=== PATIENT | female | born 1975 | race Caucasian/White ===

== ENCOUNTER 2021-09-02 13:45 | Inpatient (IN) ==
[2021-09-02] MEDS ORDERED: ONDANSETRON 4 MG/2 ML VIAL IV PRN (15:18)
[2021-09-02] MEDS ORDERED: ALBUTEROL 2.5 MG/3 ML NEB RESP TX PRN (15:18)
[2021-09-02] MEDS ORDERED: NICOTINE 21 MG/24 HR PATCH TRANSDERM PRN (15:18)
[2021-09-02] MEDS ORDERED: AZITHROMYCIN INJ 500 MG in SODIUM CHLORIDE 0.9% 250 ML IV ONE (15:21)
[2021-09-02] MEDS ORDERED: MELATONIN 3 MG TABLET PO PRN (15:21)
[2021-09-02] MEDS ORDERED: ZINC GLUCONATE 50 MG TABLET PO SCH (15:30)
[2021-09-02] MEDS ORDERED: CHOLECALCIFEROL 1,000 UNIT TABLET PO SCH (15:30)
[2021-09-02] MEDS: CETIRIZINE 10 MG TABLET PO SCH (15:45)
[2021-09-02 15:47] LABS: Bilirubin,Urine Negative (Negative); Blood, Urine Negative (Negative); Glucose,Urine (UA) Negative (Negative); Ketones,Urine Negative (Negative); Nitrite,Urine Negative (Negative); Protein,Urine Negative (Negative); Urine Appearance Clear (Clear); Urine Color Yellow (Yellow); Urine Specific Gravity >= 1.030 (1.001-1.035); Urine Urobilinogen 0.2 eU/dL (<2.0); Urine pH 5.5 (4.5-8.0)
[2021-09-02 15:52] LABS: Mucus,Urine Occasional /LPF (Occasional); RBC,Urine 2 /HPF (0-4); Squamous Epithelial Cell,Urine Occasional /HPF (0-10)
[2021-09-02 16:07] LABS: Barbiturates Screen,Urine Negative (Negative); Benzodiazepines Screen,Urine Positive (Negative); Cannabinoid Screen,Urine Negative (Negative); Opiate Screen,Urine Negative (Negative); Phencyclidine Screen,Urine Negative (Negative)
[2021-09-02] MEDS: ENOXAPARIN 40 MG/0.4 ML SYRINGE SUBCUT SCH (16:19)
[2021-09-02] MEDS: guaiFENesin/CODEINE 5 ML LIQUID PO PRN ×2 (16:19→21:45)
[2021-09-02 17:14] LABS: Basophils % 0.1 % (0.0-0.8); Eosinophils % 0.1 % (0.00-10.9); Hematocrit 34.1 VOL% (35.7-47.0); Hemoglobin 10.8 GM/DL (12.0-16.0); Immature Granulocytes % 1.2 %; Immature Granulocytes Absolute 0.21 #; Lymphocytes # 0.6 10*3/uL (1.4-4.0); Lymphocytes % 3.4 % (21.3-54.2); Mean Corpuscular HGB Conc 31.7 GM/DL (32-36); Mean Corpuscular Volume 93.4 FL (87-102); Mean Platelet Volume 10.1 FL (9.6-12.0); Monocytes # 0.3 10*3/uL (0.11-0.8); Monocytes % 1.6 % (1.7-12.7); Neutrophils % 93.6 % (38.7-73.9); Platelet Count 314 T/CUMM (130-400); Red Blood Count 3.65 MC/CUMM (3.8-5.5); Red Cell Distribution Width 13.3 % (9.3-17.3); White Blood Count 17.6 T/CUMM (4-12)
[2021-09-02 17:34] LABS: Ferritin 54.4 ng/mL (8-252)
[2021-09-02] MEDS: cefTRIAXone 1,000 MG in SODIUM CHLORIDE 0.9% 100 ML IV SCH (17:34)
[2021-09-02 17:36] LABS: Albumin 2.9 G/DL (3.4-5.0); Bilirubin,Total 0.4 MG/DL (0.20-1.00); Calcium 8.2 MG/DL (8.5-10.1); Osmolality,Calculated 278.7 MOS/KG (273-304); Potassium 3.8 MMOL/L (3.5-5.1)
[2021-09-02 17:43] LABS: Band Neutrophils 4 % (0-10); Lymphocytes 4 % (20-55); Platelet Estimate Normal; Total Cells Counted 100
[2021-09-02 17:44] LABS: Macrocytosis Slight; Polychromasia Few
[2021-09-02] MEDS: methylPREDNISolone SOD SUC 40 MG/1 ML VIAL IV SCH ×2 (17:55→23:46)
[2021-09-02] MEDS: CHOLECALCIFEROL 5,000 UNIT TABLET PO SCH (20:58)
[2021-09-02] MEDS: MELATONIN 3 MG TABLET PO SCH (20:58)
[2021-09-02] MEDS: FAMOTIDINE 20 MG TABLET PO SCH (20:58)
[2021-09-02] MEDS: GABAPENTIN 600 MG TABLET PO SCH (20:58)
[2021-09-02] MEDS: ASCORBIC ACID 500 MG TABLET PO SCH (20:58)
[2021-09-02] MEDS ORDERED: GABAPENTIN 300 MG CAPSULE PO SCH (21:00)
[2021-09-03 03:51] LABS: ABG Base Excess -0.6 MMOL/L (-2.5-2.5); ABG HCO3 23.9 MMOL/L (20-26); ABG Oxygen Saturation 95.2 % (95-100); ABG PCO2 44.3 MM HG (35-48); ABG PO2 80.1 MM HG (80-95); ABG TCO2 22.8 MMOL/L (23-27)
[2021-09-03] MEDS: guaiFENesin/CODEINE 5 ML LIQUID PO PRN ×3 (04:19→17:00)
[2021-09-03] MEDS: methylPREDNISolone SOD SUC 40 MG/1 ML VIAL IV SCH ×4 (05:42→23:32)
[2021-09-03 05:54] LABS: Basophils % 0.1 % (0.0-0.8); Hematocrit 31.8 VOL% (35.7-47.0); Hemoglobin 10.1 GM/DL (12.0-16.0); Immature Granulocytes % 0.9 %; Immature Granulocytes Absolute 0.14 #; Lymphocytes # 0.7 10*3/uL (1.4-4.0); Lymphocytes % 4.4 % (21.3-54.2); Mean Corpuscular HGB Conc 31.8 GM/DL (32-36); Mean Corpuscular Volume 94.4 FL (87-102); Mean Platelet Volume 10.1 FL (9.6-12.0); Monocytes # 0.1 10*3/uL (0.11-0.8); Monocytes % 0.7 % (1.7-12.7); Neutrophils % 93.9 % (38.7-73.9); Platelet Count 314 T/CUMM (130-400); Red Blood Count 3.37 MC/CUMM (3.8-5.5); Red Cell Distribution Width 13.2 % (9.3-17.3); White Blood Count 14.9 T/CUMM (4-12)
[2021-09-03 06:15] LABS: Calcium 8.9 MG/DL (8.5-10.1); Osmolality,Calculated 275.8 MOS/KG (273-304); Potassium 4.1 MMOL/L (3.5-5.1)
[2021-09-03 06:21] LABS: Lymphocytes 3 % (20-55); Total Cells Counted 100
[2021-09-03 06:22] LABS: Microcytosis 1+; Platelet Estimate Normal; Polychromasia Slight
[2021-09-03] MEDS ORDERED: PANTOPRAZOLE 40 MG TABLET PO SCH (09:00)
[2021-09-03] MEDS ORDERED: DEXAMETHASONE 4 MG/1 ML VIAL IV SCH (09:00)
[2021-09-03] MEDS: ASCORBIC ACID 500 MG TABLET PO SCH ×2 (09:52→21:58)
[2021-09-03] MEDS: CHOLECALCIFEROL 5,000 UNIT TABLET PO SCH ×2 (09:52→21:58)
[2021-09-03] MEDS: ZINC GLUCONATE 50 MG TABLET PO SCH (09:52)
[2021-09-03] MEDS: amLODIPine 10 MG TABLET PO SCH (09:53)
[2021-09-03] MEDS: CETIRIZINE 10 MG TABLET PO SCH (09:53)
[2021-09-03] MEDS: GABAPENTIN 600 MG TABLET PO SCH ×3 (09:53→21:58)
[2021-09-03] MEDS: FAMOTIDINE 20 MG TABLET PO SCH ×2 (09:53→21:58)
[2021-09-03] MEDS: oxyCODONE/ACETAMINOPHEN 5-325 MG TABLET PO PRN ×2 (11:25→21:58)
[2021-09-03] MEDS: ENOXAPARIN 40 MG/0.4 ML SYRINGE SUBCUT SCH (11:30)
[2021-09-03] MEDS: cefTRIAXone 1,000 MG in SODIUM CHLORIDE 0.9% 100 ML IV SCH (16:30)
[2021-09-03] MEDS: ENOXAPARIN 60 MG/0.6 ML SYRINGE SUBCUT SCH (18:18)
[2021-09-03] MEDS: MELATONIN 3 MG TABLET PO SCH (21:58)
[2021-09-04] MEDS: guaiFENesin/CODEINE 5 ML LIQUID PO PRN ×2 (00:20→06:00)
[2021-09-04 05:26] LABS: Arterial Base Excess iSTAT -1 MMOL/L (-2.5-2.5); Arterial Bicarbonate iSTAT 24.5 MMOL/L (20-26); Arterial O2 Saturation iSTAT 94 % (95-100); Arterial PCO2 iSTAT 45 MM HG (35-48); Arterial PO2 iSTAT 74 MM HG (80-95); Arterial Total CO2 iSTAT 26 MMO/L (23-27); Arterial pH iSTAT 7.343 (7.35-7.45)
[2021-09-04] MEDS: ENOXAPARIN 60 MG/0.6 ML SYRINGE SUBCUT SCH ×2 (05:27→16:40)
[2021-09-04] MEDS: methylPREDNISolone SOD SUC 40 MG/1 ML VIAL IV SCH ×4 (05:28→23:08)
[2021-09-04 05:34] LABS: Basophils % 0.2 % (0.0-0.8); Hematocrit 33.6 VOL% (35.7-47.0); Hemoglobin 10.1 GM/DL (12.0-16.0); Immature Granulocytes Absolute 0.23 #; Lymphocytes # 0.7 10*3/uL (1.4-4.0); Lymphocytes % 2.9 % (21.3-54.2); Mean Corpuscular HGB Conc 30.1 GM/DL (32-36); Mean Corpuscular Volume 100.9 FL (87-102); Mean Platelet Volume 11.1 FL (9.6-12.0); Monocytes # 0.5 10*3/uL (0.11-0.8); Monocytes % 2.1 % (1.7-12.7); Neutrophils % 93.8 % (38.7-73.9); Platelet Count 182 T/CUMM (130-400); Red Blood Count 3.33 MC/CUMM (3.8-5.5); Red Cell Distribution Width 13.6 % (9.3-17.3); White Blood Count 22.6 T/CUMM (4-12)
[2021-09-04 06:04] LABS: Calcium 8.4 MG/DL (8.5-10.1); Osmolality,Calculated 278.7 MOS/KG (273-304); Phosphorous 2.2 MG/DL (2.5-4.9); Potassium 4.5 MMOL/L (3.5-5.1)
[2021-09-04 06:26] LABS: Band Neutrophils 1 % (0-10); Lymphocytes 1 % (20-55); Total Cells Counted 100
[2021-09-04 06:27] LABS: Microcytosis 1+; Ovalocytes Slight
[2021-09-04] MEDS: guaiFENesin/DM ER 600-30 MG TABLET PO PRN (08:49)
[2021-09-04] MEDS: FAMOTIDINE 20 MG TABLET PO SCH ×2 (08:49→20:13)
[2021-09-04] MEDS: ZINC GLUCONATE 50 MG TABLET PO SCH (08:49)
[2021-09-04] MEDS: ASCORBIC ACID 500 MG TABLET PO SCH ×2 (08:49→20:13)
[2021-09-04] MEDS: GABAPENTIN 600 MG TABLET PO SCH ×3 (08:50→20:13)
[2021-09-04] MEDS: CHOLECALCIFEROL 5,000 UNIT TABLET PO SCH ×2 (08:50→20:13)
[2021-09-04] MEDS: amLODIPine 10 MG TABLET PO SCH (08:50)
[2021-09-04] MEDS: CETIRIZINE 10 MG TABLET PO SCH (08:50)
[2021-09-04] MEDS: oxyCODONE/ACETAMINOPHEN 5-325 MG TABLET PO PRN ×3 (09:30→21:38)
[2021-09-04] MEDS: LORazepam 2 MG/1 ML VIAL IV PRN ×3 (10:45→23:07)
[2021-09-04] MEDS: ALBUTEROL INHALER 18 GM INH SCH ×3 (11:54→19:50)
[2021-09-04] MEDS: HYDROcodone/CHLORPHENIRAMINE ER 5 ML UDCUP PO SCH ×2 (11:54→20:13)
[2021-09-04] MEDS: cefTRIAXone 1,000 MG in SODIUM CHLORIDE 0.9% 100 ML IV SCH (16:40)
[2021-09-04] MEDS: MELATONIN 3 MG TABLET PO SCH (20:13)
[2021-09-05] MEDS: ALBUTEROL INHALER 18 GM INH SCH ×4 (01:00→20:20)
[2021-09-05] MEDS: LORazepam 2 MG/1 ML VIAL IV PRN ×5 (03:21→21:52)
[2021-09-05] MEDS: ENOXAPARIN 60 MG/0.6 ML SYRINGE SUBCUT SCH ×2 (05:04→15:32)
[2021-09-05] MEDS: methylPREDNISolone SOD SUC 40 MG/1 ML VIAL IV SCH ×4 (05:04→22:03)
[2021-09-05] MEDS: oxyCODONE/ACETAMINOPHEN 5-325 MG TABLET PO PRN ×4 (05:05→21:51)
[2021-09-05 05:29] LABS: ABG Base Excess 0.4 MMOL/L (-2.5-2.5); ABG HCO3 24.7 MMOL/L (20-26); ABG Oxygen Saturation 94.3 % (95-100); ABG PCO2 48.2 MM HG (35-48); ABG PH 7.348 (7.35-7.45); ABG PO2 72.7 MM HG (80-95); ABG TCO2 24.2 MMOL/L (23-27)
[2021-09-05 05:41] LABS: Basophils % 0.1 % (0.0-0.8); Hematocrit 32.9 VOL% (35.7-47.0); Lymphocytes # 0.8 10*3/uL (1.4-4.0); Lymphocytes % 3.8 % (21.3-54.2); Mean Corpuscular HGB Conc 30.4 GM/DL (32-36); Mean Corpuscular Volume 99.1 FL (87-102); Mean Platelet Volume 10.3 FL (9.6-12.0); Monocytes # 0.4 10*3/uL (0.11-0.8); Monocytes % 2.2 % (1.7-12.7); Neutrophils % 91.9 % (38.7-73.9); Platelet Count 335 T/CUMM (130-400); Red Blood Count 3.32 MC/CUMM (3.8-5.5); Red Cell Distribution Width 13.8 % (9.3-17.3); White Blood Count 20.3 T/CUMM (4-12)
[2021-09-05 06:04] LABS: Calcium 7.5 MG/DL (8.5-10.1); Osmolality,Calculated 291.7 MOS/KG (273-304)
[2021-09-05 06:06] LABS: Lymphocytes 4 % (20-55); Total Cells Counted 100
[2021-09-05 06:07] LABS: Platelet Estimate Adequate
[2021-09-05] MEDS: FAMOTIDINE 20 MG TABLET PO SCH ×2 (08:09→21:52)
[2021-09-05] MEDS: guaiFENesin/DM ER 600-30 MG TABLET PO PRN (08:09)
[2021-09-05] MEDS: GABAPENTIN 600 MG TABLET PO SCH ×3 (08:09→21:52)
[2021-09-05] MEDS: ASCORBIC ACID 500 MG TABLET PO SCH ×2 (08:09→21:51)
[2021-09-05] MEDS: ZINC GLUCONATE 50 MG TABLET PO SCH (08:09)
[2021-09-05] MEDS: CHOLECALCIFEROL 5,000 UNIT TABLET PO SCH ×2 (08:09→21:52)
[2021-09-05] MEDS: CETIRIZINE 10 MG TABLET PO SCH (08:09)
[2021-09-05] MEDS: amLODIPine 10 MG TABLET PO SCH (08:10)
[2021-09-05] MEDS: HYDROcodone/CHLORPHENIRAMINE ER 5 ML UDCUP PO SCH ×2 (08:11→21:55)
[2021-09-05] MEDS: FUROSEMIDE 40 MG/4 ML VIAL IV SCH (15:32)
[2021-09-05] MEDS: cefTRIAXone 1,000 MG in SODIUM CHLORIDE 0.9% 100 ML IV SCH (16:48)
[2021-09-05] MEDS: MELATONIN 3 MG TABLET PO SCH (21:58)
[2021-09-06] MEDS: ALBUTEROL INHALER 18 GM INH SCH ×4 (03:40→21:15)
[2021-09-06] MEDS: oxyCODONE/ACETAMINOPHEN 5-325 MG TABLET PO PRN ×2 (05:08→13:33)
[2021-09-06] MEDS: ENOXAPARIN 60 MG/0.6 ML SYRINGE SUBCUT SCH ×2 (05:08→15:31)
[2021-09-06] MEDS: methylPREDNISolone SOD SUC 40 MG/1 ML VIAL IV SCH ×4 (05:08→22:29)
[2021-09-06] MEDS: guaiFENesin/DM ER 600-30 MG TABLET PO PRN ×3 (05:28→21:14)
[2021-09-06] MEDS: ZINC GLUCONATE 50 MG TABLET PO SCH (08:15)
[2021-09-06] MEDS: FAMOTIDINE 20 MG TABLET PO SCH ×2 (08:15→21:14)
[2021-09-06] MEDS: CHOLECALCIFEROL 5,000 UNIT TABLET PO SCH ×2 (08:15→21:14)
[2021-09-06] MEDS: ASCORBIC ACID 500 MG TABLET PO SCH ×2 (08:16→21:14)
[2021-09-06] MEDS: FUROSEMIDE 40 MG/4 ML VIAL IV SCH (08:16)
[2021-09-06] MEDS: HYDROcodone/CHLORPHENIRAMINE ER 5 ML UDCUP PO SCH ×2 (08:16→21:15)
[2021-09-06] MEDS: GABAPENTIN 600 MG TABLET PO SCH ×3 (08:16→21:14)
[2021-09-06] MEDS: amLODIPine 10 MG TABLET PO SCH (08:16)
[2021-09-06] MEDS: CETIRIZINE 10 MG TABLET PO SCH (08:16)
[2021-09-06] MEDS: LORazepam 2 MG/1 ML VIAL IV PRN ×3 (08:17→21:15)
[2021-09-06] MEDS: cefTRIAXone 1,000 MG in SODIUM CHLORIDE 0.9% 100 ML IV SCH (16:30)
[2021-09-06] MEDS: MELATONIN 3 MG TABLET PO SCH (21:14)
[2021-09-06] MEDS: ACETAMINOPHEN 325 MG TABLET PO PRN (21:17)
[2021-09-06 23:08] LABS: ABG Oxygen Saturation 94.3 % (95-100); ABG PCO2 47.2 MM HG (35-48); ABG PH 7.403 (7.35-7.45); ABG PO2 76.8 MM HG (80-95); ABG TCO2 26.9 MMOL/L (23-27)
[2021-09-07] MEDS: ALBUTEROL INHALER 18 GM INH SCH ×4 (02:53→20:59)
[2021-09-07] MEDS: LORazepam 2 MG/1 ML VIAL IV PRN ×3 (02:53→16:04)
[2021-09-07] MEDS: methylPREDNISolone SOD SUC 40 MG/1 ML VIAL IV SCH ×2 (04:23→11:19)
[2021-09-07] MEDS: ENOXAPARIN 60 MG/0.6 ML SYRINGE SUBCUT SCH ×2 (04:23→16:21)
[2021-09-07] MEDS: oxyCODONE/ACETAMINOPHEN 5-325 MG TABLET PO PRN ×3 (04:24→16:04)
[2021-09-07] MEDS: ZINC GLUCONATE 50 MG TABLET PO SCH (08:11)
[2021-09-07] MEDS: HYDROcodone/CHLORPHENIRAMINE ER 5 ML UDCUP PO SCH ×2 (08:12→20:56)
[2021-09-07] MEDS: CHOLECALCIFEROL 5,000 UNIT TABLET PO SCH ×2 (08:12→20:58)
[2021-09-07] MEDS: FUROSEMIDE 40 MG/4 ML VIAL IV SCH (08:12)
[2021-09-07] MEDS: GABAPENTIN 600 MG TABLET PO SCH ×3 (08:13→20:58)
[2021-09-07] MEDS: guaiFENesin/DM ER 600-30 MG TABLET PO PRN (08:13)
[2021-09-07] MEDS: ASCORBIC ACID 500 MG TABLET PO SCH ×2 (08:13→20:57)
[2021-09-07] MEDS: FAMOTIDINE 20 MG TABLET PO SCH ×2 (08:13→20:58)
[2021-09-07] MEDS: amLODIPine 10 MG TABLET PO SCH (08:13)
[2021-09-07] MEDS: CETIRIZINE 10 MG TABLET PO SCH (08:13)
[2021-09-07] MEDS: ACETAMINOPHEN 325 MG TABLET PO PRN (08:40)
[2021-09-07 09:21] LABS: Basophils % 0.1 % (0.0-0.8); Hematocrit 34.8 VOL% (35.7-47.0); Hemoglobin 10.7 GM/DL (12.0-16.0); Immature Granulocytes % 2.2 %; Immature Granulocytes Absolute 0.32 #; Lymphocytes # 0.6 10*3/uL (1.4-4.0); Lymphocytes % 4.5 % (21.3-54.2); Mean Corpuscular HGB Conc 30.7 GM/DL (32-36); Mean Corpuscular Volume 96.7 FL (87-102); Mean Platelet Volume 10.1 FL (9.6-12.0); Monocytes # 0.2 10*3/uL (0.11-0.8); Monocytes % 1.3 % (1.7-12.7); NRBC # 0.03 10*3/uL; Neutrophils % 91.9 % (38.7-73.9); Platelet Count 384 T/CUMM (130-400); Red Cell Distribution Width 13.2 % (9.3-17.3); White Blood Count 14.3 T/CUMM (4-12)
[2021-09-07] MEDS: DIAZEPAM 5 MG TABLET PO SCH ×3 (09:30→20:57)
[2021-09-07] MEDS: BENZONATATE 100 MG CAPSULE PO SCH ×3 (09:30→20:57)
[2021-09-07 09:39] LABS: Alanine Aminotransferase 94 U/L (13-56); Albumin 2.4 G/DL (3.4-5.0); Alkaline Phosphatase 53 U/L (45-117); Aspartate Amino Transferase 40 U/L (0-37); Bilirubin,Total < 0.39 MG/DL (0.20-1.00); Blood Urea Nitrogen 21 MG/DL (7-18); Calcium 8.3 MG/DL (8.5-10.1); Carbon Dioxide 33 MMOL/L (21-32); Chloride 104 MMOL/L (98-107); Estimated Glom Filtration Rate 117 ML/MIN; Glucose 201 MG/DL (74-106); Osmolality,Calculated 289.3 MOS/KG (273-304); Potassium 3.8 MMOL/L (3.5-5.1); Sodium 141 MMOL/L (136-145); Total Protein 6.8 G/DL (6.4-8.2)
[2021-09-07 09:42] LABS: Lymphocytes 4 % (20-55); Metamyelocytes 1 %; Myelocytes 1 %; Total Cells Counted 100
[2021-09-07 09:43] LABS: Polychromasia Few
[2021-09-07 09:44] LABS: Macrocytosis Slight; Ovalocytes Slight; Platelet Estimate Increased
[2021-09-07] MEDS: methylPREDNISolone SOD SUC 125 MG/2 ML VIAL IV SCH ×2 (14:00→20:58)
[2021-09-07] MEDS: cefTRIAXone 1,000 MG in SODIUM CHLORIDE 0.9% 100 ML IV SCH (16:21)
[2021-09-07] MEDS: MELATONIN 3 MG TABLET PO SCH (20:57)
[2021-09-08] MEDS: LORazepam 2 MG/1 ML VIAL IV PRN ×2 (01:43→06:09)
[2021-09-08] MEDS: oxyCODONE/ACETAMINOPHEN 5-325 MG TABLET PO PRN (01:43)
[2021-09-08 03:09] LABS: Basophils % 0.1 % (0.0-0.8); Hematocrit 32.1 VOL% (35.7-47.0); Hemoglobin 10.3 GM/DL (12.0-16.0); Immature Granulocytes % 2.7 %; Immature Granulocytes Absolute 0.39 #; Lymphocytes # 0.6 10*3/uL (1.4-4.0); Lymphocytes % 4.4 % (21.3-54.2); Mean Corpuscular HGB Conc 32.1 GM/DL (32-36); Mean Corpuscular Volume 93.9 FL (87-102); Monocytes # 0.3 10*3/uL (0.11-0.8); Monocytes % 2.2 % (1.7-12.7); NRBC # 0.03 10*3/uL; Neutrophils % 90.6 % (38.7-73.9); Platelet Count 365 T/CUMM (130-400); Red Blood Count 3.42 MC/CUMM (3.8-5.5); Red Cell Distribution Width 13.2 % (9.3-17.3); White Blood Count 14.7 T/CUMM (4-12)
[2021-09-08 03:29] LABS: Hypochromia Slight; Lymphocytes 4 % (20-55); Microcytosis Slight; Platelet Estimate Adequate; Total Cells Counted 100
[2021-09-08 04:14] LABS: Arterial Base Excess iSTAT 3 MMOL/L (-2.5-2.5); Arterial O2 Saturation iSTAT 96 % (95-100); Arterial PCO2 iSTAT 51 MM HG (35-48); Arterial PO2 iSTAT 83 MM HG (80-95); Arterial Total CO2 iSTAT 31 MMO/L (23-27); Arterial pH iSTAT 7.366 (7.35-7.45)
[2021-09-08 04:14] LABS: Arterial Base Excess iSTAT 2 MMOL/L (-2.5-2.5); Arterial Bicarbonate iSTAT 28.5 MMOL/L (20-26); Arterial PCO2 iSTAT 49 MM HG (35-48); Arterial Total CO2 iSTAT 30 MMO/L (23-27); Arterial pH iSTAT 7.374 (7.35-7.45)
[2021-09-08 04:26] LABS: Alanine Aminotransferase 74 U/L (13-56); Albumin 2.1 G/DL (3.4-5.0); Alkaline Phosphatase 52 U/L (45-117); Aspartate Amino Transferase 22 U/L (0-37); Bilirubin,Total < 0.39 MG/DL (0.20-1.00); Blood Urea Nitrogen 21 MG/DL (7-18); Calcium 7.9 MG/DL (8.5-10.1); Carbon Dioxide 28 MMOL/L (21-32); Chloride 107 MMOL/L (98-107); Estimated Glom Filtration Rate 138 ML/MIN; Glucose 230 MG/DL (74-106); Osmolality,Calculated 290.3 MOS/KG (273-304); Potassium 3.7 MMOL/L (3.5-5.1); Sodium 141 MMOL/L (136-145); Total Protein 5.9 G/DL (6.4-8.2)
[2021-09-08] MEDS: ALBUTEROL INHALER 18 GM INH SCH ×3 (04:55→13:48)
[2021-09-08] MEDS: ENOXAPARIN 60 MG/0.6 ML SYRINGE SUBCUT SCH ×2 (05:26→16:54)
[2021-09-08] MEDS: methylPREDNISolone SOD SUC 125 MG/2 ML VIAL IV SCH ×3 (05:26→20:30)
[2021-09-08] MEDS ORDERED: ETOMIDATE 20 MG/10 ML VIAL IV ONE ×4 (08:15→08:49)
[2021-09-08] MEDS ORDERED: SUCCINYLCHOLINE 200 MG/10 ML VIAL ONE (08:16)
[2021-09-08] MEDS ORDERED: SUCCINYLCHOLINE 200 MG/10 ML VIAL IV ONE (08:43)
[2021-09-08] MEDS ORDERED: MIDAZOLAM 10 MG/2 ML VIAL ONE (08:51)
[2021-09-08] MEDS ORDERED: MIDAZOLAM 2 MG/2 ML VIAL IV ONE ×2 (08:53→08:58)
[2021-09-08] MEDS: MIDAZOLAM 100 MG in SODIUM CHLORIDE 0.9% 80 ML IV PRN (09:25)
[2021-09-08 10:05] LABS: Arterial Base Excess iSTAT 6 MMOL/L (-2.5-2.5); Arterial Bicarbonate iSTAT 33.1 MMOL/L (20-26); Arterial O2 Saturation iSTAT 100 % (95-100); Arterial PCO2 iSTAT 58 MM HG (35-48); Arterial PO2 iSTAT 306 MM HG (80-95); Arterial Total CO2 iSTAT 35 MMO/L (23-27); Arterial pH iSTAT 7.362 (7.35-7.45)
[2021-09-08] MEDS: CETIRIZINE 10 MG TABLET PO SCH (10:45)
[2021-09-08] MEDS: ZINC GLUCONATE 50 MG TABLET PO SCH (10:45)
[2021-09-08] MEDS: FAMOTIDINE 20 MG TABLET PO SCH ×2 (10:46→20:25)
[2021-09-08] MEDS: CHOLECALCIFEROL 5,000 UNIT TABLET PO SCH ×2 (10:46→20:23)
[2021-09-08] MEDS: ASCORBIC ACID 500 MG TABLET PO SCH ×2 (10:46→20:23)
[2021-09-08] MEDS: GABAPENTIN 600 MG TABLET PO SCH ×3 (10:46→20:25)
[2021-09-08] MEDS: DIAZEPAM 5 MG TABLET PO SCH ×3 (10:47→20:24)
[2021-09-08] MEDS: AZITHROMYCIN INJ 500 MG in SODIUM CHLORIDE 0.9% 250 ML IV SCH (10:49)
[2021-09-08] MEDS: BENZONATATE 100 MG CAPSULE PO SCH ×3 (13:46→20:25)
[2021-09-08] MEDS: HYDROcodone/CHLORPHENIRAMINE ER 5 ML UDCUP PO SCH ×2 (13:46→20:25)
[2021-09-08] MEDS: amLODIPine 10 MG TABLET PO SCH (13:53)
[2021-09-08] MEDS: cefTRIAXone 1,000 MG in SODIUM CHLORIDE 0.9% 100 ML IV SCH (16:54)
[2021-09-08] MEDS: MELATONIN 3 MG TABLET PO SCH (20:23)
[2021-09-09 03:25] LABS: ABG Base Excess 4.3 MMOL/L (-2.5-2.5); ABG HCO3 28.3 MMOL/L (20-26); ABG Oxygen Saturation 99.4 % (95-100); ABG PCO2 40.1 MM HG (35-48); ABG PH 7.458 (7.35-7.45); ABG TCO2 25.9 MMOL/L (23-27)
[2021-09-09 04:20] LABS: Basophils % 0.1 % (0.0-0.8); Hemoglobin 9.1 GM/DL (12.0-16.0); Immature Granulocytes % 1.9 %; Immature Granulocytes Absolute 0.22 #; Lymphocytes # 0.8 10*3/uL (1.4-4.0); Lymphocytes % 6.8 % (21.3-54.2); Mean Corpuscular HGB Conc 30.3 GM/DL (32-36); Mean Corpuscular Volume 96.8 FL (87-102); Mean Platelet Volume 10.3 FL (9.6-12.0); Monocytes # 0.4 10*3/uL (0.11-0.8); Monocytes % 3.4 % (1.7-12.7); NRBC # 0.02 10*3/uL; Neutrophils % 87.8 % (38.7-73.9); Platelet Count 337 T/CUMM (130-400); Red Cell Distribution Width 13.2 % (9.3-17.3); White Blood Count 11.5 T/CUMM (4-12)
[2021-09-09 04:39] LABS: Alanine Aminotransferase 111 U/L (13-56); Alkaline Phosphatase 40 U/L (45-117); Aspartate Amino Transferase 31 U/L (0-37); Bilirubin,Total < 0.39 MG/DL (0.20-1.00); Blood Urea Nitrogen 22 MG/DL (7-18); Carbon Dioxide 29 MMOL/L (21-32); Chloride 109 MMOL/L (98-107); Estimated Glom Filtration Rate 147 ML/MIN; Glucose 154 MG/DL (74-106); Osmolality,Calculated 288.1 MOS/KG (273-304); Potassium 4.4 MMOL/L (3.5-5.1); Sodium 142 MMOL/L (136-145); Total Protein 5.5 G/DL (6.4-8.2)
[2021-09-09] MEDS: ENOXAPARIN 60 MG/0.6 ML SYRINGE SUBCUT SCH ×2 (04:43→17:11)
[2021-09-09] MEDS: methylPREDNISolone SOD SUC 125 MG/2 ML VIAL IV SCH ×3 (04:44→20:30)
[2021-09-09] MEDS: ALBUTEROL INHALER 18 GM INH SCH ×4 (04:44→18:00)
[2021-09-09] MEDS: amLODIPine 10 MG TABLET PO SCH (08:53)
[2021-09-09] MEDS: BENZONATATE 100 MG CAPSULE PO SCH ×2 (08:54→15:05)
[2021-09-09] MEDS: MIDAZOLAM 100 MG in SODIUM CHLORIDE 0.9% 80 ML IV PRN ×2 (09:07→22:40)
[2021-09-09] MEDS: AZITHROMYCIN INJ 500 MG in SODIUM CHLORIDE 0.9% 250 ML IV SCH (09:07)
[2021-09-09] MEDS: FUROSEMIDE 40 MG/4 ML VIAL IV SCH (09:13)
[2021-09-09] MEDS: HYDROcodone/CHLORPHENIRAMINE ER 5 ML UDCUP PO SCH ×2 (09:15→20:02)
[2021-09-09] MEDS: CETIRIZINE 10 MG TABLET PO SCH (09:16)
[2021-09-09] MEDS: GABAPENTIN 600 MG TABLET PO SCH ×3 (09:16→20:02)
[2021-09-09] MEDS: DIAZEPAM 5 MG TABLET PO SCH ×3 (09:16→20:02)
[2021-09-09] MEDS: CHOLECALCIFEROL 5,000 UNIT TABLET PO SCH ×2 (09:17→20:02)
[2021-09-09] MEDS: FAMOTIDINE 20 MG TABLET PO SCH ×2 (09:17→20:01)
[2021-09-09] MEDS: ZINC GLUCONATE 50 MG TABLET PO SCH (09:17)
[2021-09-09] MEDS: ASCORBIC ACID 500 MG TABLET PO SCH ×2 (09:17→20:01)
[2021-09-09] MEDS: cefTRIAXone 1,000 MG in SODIUM CHLORIDE 0.9% 100 ML IV SCH (17:11)
[2021-09-09] MEDS: MELATONIN 3 MG TABLET PO SCH (20:01)
[2021-09-10] MEDS: ALBUTEROL INHALER 18 GM INH SCH ×4 (00:14→19:39)
[2021-09-10] MEDS: ENOXAPARIN 60 MG/0.6 ML SYRINGE SUBCUT SCH ×2 (03:38→17:24)
[2021-09-10 03:56] LABS: Arterial Base Excess iSTAT 5 MMOL/L (-2.5-2.5); Arterial Bicarbonate iSTAT 29.3 MMOL/L (20-26); Arterial O2 Saturation iSTAT 99 % (95-100); Arterial PCO2 iSTAT 41 MM HG (35-48); Arterial PO2 iSTAT 124 MM HG (80-95); Arterial Total CO2 iSTAT 31 MMO/L (23-27); Arterial pH iSTAT 7.462 (7.35-7.45)
[2021-09-10 04:33] LABS: Basophils % 0.1 % (0.0-0.8); Hematocrit 31.3 VOL% (35.7-47.0); Hemoglobin 9.9 GM/DL (12.0-16.0); Immature Granulocytes % 2.2 %; Immature Granulocytes Absolute 0.21 #; Lymphocytes # 0.9 10*3/uL (1.4-4.0); Lymphocytes % 8.9 % (21.3-54.2); Mean Corpuscular HGB Conc 31.6 GM/DL (32-36); Mean Corpuscular Volume 95.1 FL (87-102); Mean Platelet Volume 10.2 FL (9.6-12.0); Monocytes # 0.4 10*3/uL (0.11-0.8); Monocytes % 4.6 % (1.7-12.7); Neutrophils % 84.2 % (38.7-73.9); Platelet Count 360 T/CUMM (130-400); Red Blood Count 3.29 MC/CUMM (3.8-5.5); Red Cell Distribution Width 13.2 % (9.3-17.3); White Blood Count 9.6 T/CUMM (4-12)
[2021-09-10 04:49] LABS: Alanine Aminotransferase 82 U/L (13-56); Albumin 2.1 G/DL (3.4-5.0); Alkaline Phosphatase 37 U/L (45-117); Aspartate Amino Transferase 15 U/L (0-37); Bilirubin,Total < 0.39 MG/DL (0.20-1.00); Blood Urea Nitrogen 27 MG/DL (7-18); Carbon Dioxide 29 MMOL/L (21-32); Chloride 108 MMOL/L (98-107); Estimated Glom Filtration Rate 142 ML/MIN; Glucose 164 MG/DL (74-106); Osmolality,Calculated 291.1 MOS/KG (273-304); Potassium 4.4 MMOL/L (3.5-5.1); Sodium 142 MMOL/L (136-145); Total Protein 5.9 G/DL (6.4-8.2)
[2021-09-10] MEDS: methylPREDNISolone SOD SUC 125 MG/2 ML VIAL IV SCH ×3 (04:52→21:27)
[2021-09-10] MEDS: AZITHROMYCIN INJ 500 MG in SODIUM CHLORIDE 0.9% 250 ML IV SCH (06:33)
[2021-09-10] MEDS: FUROSEMIDE 40 MG/4 ML VIAL IV SCH (08:30)
[2021-09-10] MEDS: ZINC GLUCONATE 50 MG TABLET PO SCH (08:31)
[2021-09-10] MEDS: DIAZEPAM 5 MG TABLET PO SCH ×2 (08:31→20:24)
[2021-09-10] MEDS: CHOLECALCIFEROL 5,000 UNIT TABLET PO SCH ×2 (08:31→20:24)
[2021-09-10] MEDS: CETIRIZINE 10 MG TABLET PO SCH (08:31)
[2021-09-10] MEDS: ASCORBIC ACID 500 MG TABLET PO SCH ×2 (08:31→20:24)
[2021-09-10] MEDS: GABAPENTIN 600 MG TABLET PO SCH ×3 (08:31→20:25)
[2021-09-10] MEDS: FAMOTIDINE 20 MG TABLET PO SCH ×2 (08:31→20:24)
[2021-09-10] MEDS: HYDROcodone/CHLORPHENIRAMINE ER 5 ML UDCUP PO SCH ×2 (08:32→20:25)
[2021-09-10] MEDS ORDERED: DEXTROSE 10% 25 GM/250 ML BAG IV PRN (11:01)
[2021-09-10] MEDS ORDERED: GLUCAGON 1 MG VIAL IM PRN (11:01)
[2021-09-10] MEDS: amLODIPine 10 MG TABLET PO SCH (11:32)
[2021-09-10] MEDS: INSULIN REGULAR 100 UNIT/ML SUBCUT SCH ×2 (14:32→18:28)
[2021-09-10] MEDS: cefTRIAXone 1,000 MG in SODIUM CHLORIDE 0.9% 100 ML IV SCH (17:24)
[2021-09-10] MEDS: MELATONIN 3 MG TABLET PO SCH (20:24)
[2021-09-11] MEDS: INSULIN REGULAR 100 UNIT/ML SUBCUT SCH ×4 (01:55→18:09)
[2021-09-11] MEDS: ALBUTEROL INHALER 18 GM INH SCH ×4 (01:56→18:59)
[2021-09-11] MEDS: oxyCODONE/ACETAMINOPHEN 5-325 MG TABLET PO PRN ×2 (03:01→22:14)
[2021-09-11 03:43] LABS: Basophils % 0.1 % (0.0-0.8); Hematocrit 31.7 VOL% (35.7-47.0); Immature Granulocytes % 1.9 %; Immature Granulocytes Absolute 0.21 #; Lymphocytes # 1.7 10*3/uL (1.4-4.0); Mean Corpuscular HGB Conc 31.5 GM/DL (32-36); Mean Corpuscular Volume 93.5 FL (87-102); Mean Platelet Volume 10.1 FL (9.6-12.0); Monocytes # 0.8 10*3/uL (0.11-0.8); Monocytes % 6.8 % (1.7-12.7); Neutrophils % 76.2 % (38.7-73.9); Platelet Count 371 T/CUMM (130-400); Red Blood Count 3.39 MC/CUMM (3.8-5.5); Red Cell Distribution Width 13.3 % (9.3-17.3); White Blood Count 11.2 T/CUMM (4-12)
[2021-09-11 03:56] LABS: Arterial Base Excess iSTAT 6 MMOL/L (-2.5-2.5); Arterial Bicarbonate iSTAT 29.8 MMOL/L (20-26); Arterial O2 Saturation iSTAT 99 % (95-100); Arterial PCO2 iSTAT 37 MM HG (35-48); Arterial PO2 iSTAT 124 MM HG (80-95); Arterial Total CO2 iSTAT 31 MMO/L (23-27); Arterial pH iSTAT 7.513 (7.35-7.45)
[2021-09-11 04:01] LABS: Alanine Aminotransferase 60 U/L (13-56); Albumin 2.2 G/DL (3.4-5.0); Alkaline Phosphatase 35 U/L (45-117); Aspartate Amino Transferase 11 U/L (0-37); Bilirubin,Total < 0.39 MG/DL (0.20-1.00); Blood Urea Nitrogen 31 MG/DL (7-18); Calcium 8.2 MG/DL (8.5-10.1); Carbon Dioxide 30 MMOL/L (21-32); Chloride 107 MMOL/L (98-107); Estimated Glom Filtration Rate 142 ML/MIN; Glucose 113 MG/DL (74-106); Osmolality,Calculated 286.4 MOS/KG (273-304); Potassium 4.6 MMOL/L (3.5-5.1); Sodium 140 MMOL/L (136-145); Total Protein 5.9 G/DL (6.4-8.2)
[2021-09-11] MEDS: ENOXAPARIN 60 MG/0.6 ML SYRINGE SUBCUT SCH ×2 (04:52→15:41)
[2021-09-11] MEDS: methylPREDNISolone SOD SUC 125 MG/2 ML VIAL IV SCH ×3 (05:54→21:30)
[2021-09-11] MEDS: AZITHROMYCIN INJ 500 MG in SODIUM CHLORIDE 0.9% 250 ML IV SCH (06:55)
[2021-09-11] MEDS: FUROSEMIDE 40 MG/4 ML VIAL IV SCH (08:27)
[2021-09-11] MEDS: CHOLECALCIFEROL 5,000 UNIT TABLET PO SCH ×2 (08:33→20:12)
[2021-09-11] MEDS: ZINC GLUCONATE 50 MG TABLET PO SCH (08:33)
[2021-09-11] MEDS: GABAPENTIN 600 MG TABLET PO SCH ×3 (08:33→20:13)
[2021-09-11] MEDS: ASCORBIC ACID 500 MG TABLET PO SCH ×2 (08:33→20:12)
[2021-09-11] MEDS: amLODIPine 10 MG TABLET PO SCH (08:33)
[2021-09-11] MEDS: FAMOTIDINE 20 MG TABLET PO SCH ×2 (08:33→20:13)
[2021-09-11] MEDS: CETIRIZINE 10 MG TABLET PO SCH (08:34)
[2021-09-11] MEDS: HYDROcodone/CHLORPHENIRAMINE ER 5 ML UDCUP PO SCH ×2 (08:34→20:13)
[2021-09-11] MEDS: DIAZEPAM 5 MG TABLET PO SCH ×2 (08:34→20:13)
[2021-09-11] MEDS: cefTRIAXone 1,000 MG in SODIUM CHLORIDE 0.9% 100 ML IV SCH (17:00)
[2021-09-11] MEDS: MELATONIN 3 MG TABLET PO SCH (20:12)
[2021-09-12] MEDS: INSULIN REGULAR 100 UNIT/ML SUBCUT SCH ×4 (00:16→17:27)
[2021-09-12] MEDS: ALBUTEROL INHALER 18 GM INH SCH ×4 (01:36→21:24)
[2021-09-12 03:42] LABS: Arterial Base Excess iSTAT 5 MMOL/L (-2.5-2.5); Arterial Bicarbonate iSTAT 28.9 MMOL/L (20-26); Arterial O2 Saturation iSTAT 99 % (95-100); Arterial PCO2 iSTAT 37 MM HG (35-48); Arterial PO2 iSTAT 146 MM HG (80-95); Arterial Total CO2 iSTAT 30 MMO/L (23-27); Arterial pH iSTAT 7.499 (7.35-7.45)
[2021-09-12 04:11] LABS: Basophils % 0.1 % (0.0-0.8); Hematocrit 33.8 VOL% (35.7-47.0); Hemoglobin 10.9 GM/DL (12.0-16.0); Immature Granulocytes Absolute 0.24 #; Lymphocytes # 0.9 10*3/uL (1.4-4.0); Lymphocytes % 7.6 % (21.3-54.2); Mean Corpuscular HGB Conc 32.2 GM/DL (32-36); Mean Corpuscular Volume 92.3 FL (87-102); Monocytes # 0.5 10*3/uL (0.11-0.8); Monocytes % 4.4 % (1.7-12.7); Neutrophils % 85.9 % (38.7-73.9); Platelet Count 406 T/CUMM (130-400); Red Blood Count 3.66 MC/CUMM (3.8-5.5); Red Cell Distribution Width 13.2 % (9.3-17.3); White Blood Count 11.8 T/CUMM (4-12)
[2021-09-12 04:31] LABS: Alanine Aminotransferase 57 U/L (13-56); Albumin 2.4 G/DL (3.4-5.0); Alkaline Phosphatase 33 U/L (45-117); Aspartate Amino Transferase 9 U/L (0-37); Bilirubin,Total < 0.39 MG/DL (0.20-1.00); Blood Urea Nitrogen 34 MG/DL (7-18); Calcium 8.6 MG/DL (8.5-10.1); Carbon Dioxide 29 MMOL/L (21-32); Chloride 104 MMOL/L (98-107); Estimated Glom Filtration Rate 141 ML/MIN; Glucose 156 MG/DL (74-106); Osmolality,Calculated 285.7 MOS/KG (273-304); Potassium 4.4 MMOL/L (3.5-5.1); Sodium 138 MMOL/L (136-145); Total Protein 6.4 G/DL (6.4-8.2)
[2021-09-12] MEDS: methylPREDNISolone SOD SUC 125 MG/2 ML VIAL IV SCH ×3 (06:00→21:22)
[2021-09-12] MEDS: ENOXAPARIN 60 MG/0.6 ML SYRINGE SUBCUT SCH ×2 (06:05→17:26)
[2021-09-12] MEDS: ZINC GLUCONATE 50 MG TABLET PO SCH (08:23)
[2021-09-12] MEDS: CETIRIZINE 10 MG TABLET PO SCH (08:24)
[2021-09-12] MEDS: ASCORBIC ACID 500 MG TABLET PO SCH ×2 (08:24→21:22)
[2021-09-12] MEDS: GABAPENTIN 600 MG TABLET PO SCH ×3 (08:24→21:22)
[2021-09-12] MEDS: amLODIPine 10 MG TABLET PO SCH (08:25)
[2021-09-12] MEDS: DIAZEPAM 5 MG TABLET PO SCH ×2 (08:25→21:22)
[2021-09-12] MEDS: HYDROcodone/CHLORPHENIRAMINE ER 5 ML UDCUP PO SCH ×2 (08:25→21:20)
[2021-09-12] MEDS: FAMOTIDINE 20 MG TABLET PO SCH ×2 (08:25→21:22)
[2021-09-12] MEDS: FUROSEMIDE 40 MG/4 ML VIAL IV SCH (08:32)
[2021-09-12] MEDS: AZITHROMYCIN INJ 500 MG in SODIUM CHLORIDE 0.9% 250 ML IV SCH (08:32)
[2021-09-12] MEDS: CHOLECALCIFEROL 5,000 UNIT TABLET PO SCH ×2 (08:42→21:23)
[2021-09-12] MEDS: oxyCODONE/ACETAMINOPHEN 5-325 MG TABLET PO PRN ×2 (13:53→21:22)
[2021-09-12] MEDS: FLUCONAZOLE 200 MG TABLET PO SCH (13:53)
[2021-09-12] MEDS: cefTRIAXone 1,000 MG in SODIUM CHLORIDE 0.9% 100 ML IV SCH (17:27)
[2021-09-12] MEDS: MELATONIN 3 MG TABLET PO SCH (21:21)
[2021-09-13] MEDS: INSULIN REGULAR 100 UNIT/ML SUBCUT SCH ×4 (00:50→17:40)
[2021-09-13] MEDS: ALBUTEROL INHALER 18 GM INH SCH ×4 (00:51→22:01)
[2021-09-13 03:44] LABS: ABG Base Excess 2.5 MMOL/L (-2.5-2.5); ABG HCO3 26.6 MMOL/L (20-26); ABG Oxygen Saturation 93.8 % (95-100); ABG PCO2 40.5 MM HG (35-48); ABG PH 7.431 (7.35-7.45); ABG PO2 73.1 MM HG (80-95); ABG TCO2 23.9 MMOL/L (23-27)
[2021-09-13] MEDS: ENOXAPARIN 60 MG/0.6 ML SYRINGE SUBCUT SCH ×2 (04:07→16:18)
[2021-09-13] MEDS: oxyCODONE/ACETAMINOPHEN 5-325 MG TABLET PO PRN ×4 (04:08→21:59)
[2021-09-13 04:58] LABS: Basophils % 0.2 % (0.0-0.8); Hematocrit 37.3 VOL% (35.7-47.0); Hemoglobin 11.8 GM/DL (12.0-16.0); Immature Granulocytes % 3.5 %; Immature Granulocytes Absolute 0.64 #; Lymphocytes # 0.9 10*3/uL (1.4-4.0); Lymphocytes % 4.8 % (21.3-54.2); Mean Corpuscular HGB Conc 31.6 GM/DL (32-36); Mean Corpuscular Volume 94.7 FL (87-102); Mean Platelet Volume 10.5 FL (9.6-12.0); Monocytes # 0.6 10*3/uL (0.11-0.8); Monocytes % 3.4 % (1.7-12.7); Neutrophils % 88.1 % (38.7-73.9); Platelet Count 432 T/CUMM (130-400); Red Blood Count 3.94 MC/CUMM (3.8-5.5); Red Cell Distribution Width 13.2 % (9.3-17.3); White Blood Count 18.2 T/CUMM (4-12)
[2021-09-13] MEDS: methylPREDNISolone SOD SUC 125 MG/2 ML VIAL IV SCH (05:00)
[2021-09-13 05:16] LABS: Lymphocytes 2 % (20-55); Platelet Estimate Adequate; Total Cells Counted 100
[2021-09-13 05:21] LABS: Phosphorous 3.6 MG/DL (2.5-4.9)
[2021-09-13 05:23] LABS: Osmolality,Calculated 288.5 MOS/KG (273-304); Potassium 3.3 MMOL/L (3.5-5.1)
[2021-09-13 07:42] VITALS: BP 121/79
[2021-09-13] MEDS: FLUCONAZOLE 200 MG TABLET PO SCH (09:08)
[2021-09-13] MEDS: ASCORBIC ACID 500 MG TABLET PO SCH ×2 (09:08→22:00)
[2021-09-13] MEDS: ZINC GLUCONATE 50 MG TABLET PO SCH (09:08)
[2021-09-13] MEDS: CETIRIZINE 10 MG TABLET PO SCH (09:09)
[2021-09-13] MEDS: FAMOTIDINE 20 MG TABLET PO SCH ×2 (09:09→22:00)
[2021-09-13] MEDS: amLODIPine 10 MG TABLET PO SCH (09:09)
[2021-09-13] MEDS: GABAPENTIN 600 MG TABLET PO SCH ×3 (09:09→22:00)
[2021-09-13] MEDS: CHOLECALCIFEROL 5,000 UNIT TABLET PO SCH ×2 (09:09→22:00)
[2021-09-13] MEDS: guaiFENesin/DM ER 600-30 MG TABLET PO PRN (09:10)
[2021-09-13] MEDS: FUROSEMIDE 40 MG/4 ML VIAL IV SCH (09:11)
[2021-09-13] MEDS: HYDROcodone/CHLORPHENIRAMINE ER 5 ML UDCUP PO SCH ×2 (09:11→21:59)
[2021-09-13] MEDS: POTASSIUM CHLORIDE 20 MEQ TABLET PO PRN ×4 (09:55→22:00)
[2021-09-13] MEDS: cefTRIAXone 1,000 MG in SODIUM CHLORIDE 0.9% 100 ML IV SCH (16:19)
[2021-09-13] MEDS: MELATONIN 3 MG TABLET PO SCH (21:59)
[2021-09-13] MEDS: DIAZEPAM 2 MG TABLET PO SCH (22:00)
[2021-09-14] MEDS: POTASSIUM CHLORIDE 20 MEQ TABLET PO PRN ×2 (00:02→08:25)
[2021-09-14] MEDS: INSULIN REGULAR 100 UNIT/ML SUBCUT SCH ×2 (01:54→05:14)
[2021-09-14] MEDS: ALBUTEROL INHALER 18 GM INH SCH ×2 (03:42→08:26)
[2021-09-14] MEDS: oxyCODONE/ACETAMINOPHEN 5-325 MG TABLET PO PRN ×2 (04:58→10:12)
[2021-09-14] MEDS: ENOXAPARIN 60 MG/0.6 ML SYRINGE SUBCUT SCH (04:58)
[2021-09-14 05:15] LABS: Basophils % 0.2 % (0.0-0.8); Eosinophils # 0.1 10*3/uL (0.0-0.87); Eosinophils % 0.4 % (0.00-10.9); Hematocrit 35.2 VOL% (35.7-47.0); Hemoglobin 10.9 GM/DL (12.0-16.0); Immature Granulocytes % 2.9 %; Immature Granulocytes Absolute 0.52 #; Lymphocytes # 2.5 10*3/uL (1.4-4.0); Mean Platelet Volume 10.2 FL (9.6-12.0); Monocytes # 1.2 10*3/uL (0.11-0.8); Neutrophils % 75.5 % (38.7-73.9); Platelet Count 356 T/CUMM (130-400); Red Blood Count 3.63 MC/CUMM (3.8-5.5); Red Cell Distribution Width 13.6 % (9.3-17.3); White Blood Count 17.7 T/CUMM (4-12)
[2021-09-14 05:36] LABS: Calcium 8.6 MG/DL (8.5-10.1); Osmolality,Calculated 288.3 MOS/KG (273-304); Potassium 3.8 MMOL/L (3.5-5.1)
[2021-09-14 05:39] LABS: Band Neutrophils 1 % (0-10); Lymphocytes 14 % (20-55); Metamyelocytes 1 %; Total Cells Counted 100
[2021-09-14 05:40] LABS: Macrocytosis Slight
[2021-09-14 05:41] LABS: Platelet Estimate Normal
[2021-09-14] MEDS: FLUCONAZOLE 200 MG TABLET PO SCH (08:23)
[2021-09-14] MEDS: ZINC GLUCONATE 50 MG TABLET PO SCH (08:23)
[2021-09-14] MEDS: amLODIPine 10 MG TABLET PO SCH (08:24)
[2021-09-14] MEDS: DIAZEPAM 2 MG TABLET PO SCH (08:24)
[2021-09-14] MEDS: HYDROcodone/CHLORPHENIRAMINE ER 5 ML UDCUP PO SCH (08:24)
[2021-09-14] MEDS: ASCORBIC ACID 500 MG TABLET PO SCH (08:24)
[2021-09-14] MEDS: GABAPENTIN 600 MG TABLET PO SCH (08:24)
[2021-09-14] MEDS: CETIRIZINE 10 MG TABLET PO SCH (08:24)
[2021-09-14] MEDS: CHOLECALCIFEROL 5,000 UNIT TABLET PO SCH (08:25)
[2021-09-14] MEDS: FAMOTIDINE 20 MG TABLET PO SCH (08:25)
[2021-09-14] MEDS ORDERED: predniSONE 20 MG TABLET PO SCH (09:00)
[2021-09-14] MEDS ORDERED: FUROSEMIDE 40 MG TABLET PO SCH (09:00)
== END 2021-09-14 10:51 | disposition home or self-care (01) | DRG 207 ==
LOC: SUATTDRO 14:58 → N.ICU 14:58 → N.CC 09-04 19:00
PROVIDERS: ADMIT Internal Medicine; ATTEND Internal Medicine